=== PATIENT | female | born 1970 | race Caucasian/White ===

== ENCOUNTER 2017-04-28 18:32 | Emergency (ER) | payer OTHER ==
[2017-04-28 18:59] VITALS: BP 150/91; PULSE 100; TEMP 98.2; BMI 25.4
--- NOTE | 2017-04-28 19:00 | PDOC ---
Rapid Medical Evaluation Time Seen by Provider: 04/28/17 18:56 Medical Evaluation: Allergies Allergy/AdvReac Type Severity Reaction Status Date / Time No Known Allergies Allergy Verified 04/28/17 18:56 04/28/17 18:57 The patient presents with a chief complaint of: left knee pain I have performed a brief in-person evaluation of this patient. Pertinent physical exam findings: LROM with flexion, mild generalized edema lt patella I have ordered the following: knee xray The patient will proceed to the ED for further evaluation. Discharge Disposition - Diagnosis Left knee pain Qualifiers: Chronicity: unspecified Qualified Code(s): M25.562 - Pain in left knee - Discharge Dispostion Disposition: HOME Condition at time of disposition: Stable - Referrals Referrals: Paulo Cedillo MD [Staff Physician] - - Patient Instructions Additional Instructions: Follow-up with orthopedist Dr. Cedillo here on 04/30/2017: For appointment tomorrow Wear knee immobilizer during the day take off at night Take ibuprofen as needed as directed by slag skimmer for pain Return to emergency room if symptoms worsen or new symptoms develop And patient voiced understanding of discharge instructions and all questions were answered Kevin un seguimiento con el ortopedista Dr. Cedillo aqu el 30/04/2017: para sarah kaitlin maana Use inmovilizador de rodilla jordan el da para despegar por la noche [place] ibuprofeno segn las indicaciones del fabricante para el dolor Regrese a la mayra de emergencias si los sntomas empeoran o se desarrollan nuevos sntomas Y el paciente expres comprensin de las instrucciones de antoine y todas las preguntas fueron respondidas - Post Discharge Activity Work/School Note: Back to Work
[2017-04-28] MEDS ORDERED: IBUPROFEN 600 MG TABLET (FP) PO ONE ×2 (21:05→21:06)
--- NOTE | 2017-04-28 21:06 | PDOC ---
History of Present Illness - General Chief Complaint: Pain, Acute Stated Complaint: KNEE PAIN Time Seen by Provider: 04/28/17 18:56 Exam Limitations: No Limitations - History of Present Illness Initial Comments: 04/28/17 23:28 My chief complaint: Left knee pain History of present illness: Patient is a 46-year-old female ear today complaining of severe left knee pain today. Patient reports that she has had slight knee pain for approximately one month however today knee pain became severe. Patient reports that she is having difficulty putting any pressure on her left foot due to knee pain and having difficulty bending her left knee due to pain. Patient has not taken anything for pain. Patient denies any injury to knee. Patient denies any chance of . Occurred: reports: other (getting worse for one mth ) Severity: Yes: severe (left knee today ) Lower Extremity Pain Location: left: knee Method of Injury: Yes: unknown Modifying Factors: improves with: None Lower Ext. Injury Location - Specific Injury Location Knees: left pain Extremity Pain Location - Extremity Pain Location Extremity Pain Locations: left: knee Past History - Past Medical History Allergies/Adverse Reactions: Allergies Allergy/AdvReac Type Severity Reaction Status Date / Time No Known Allergies Allergy Verified 04/28/17 18:56 Home Medications: Ambulatory Orders No Home Medications 0 dose .ROUTE UTDICT 07/29/12 Ranitidine HCl [Zantac] 300 mg PO BID #40 tablet 07/29/12 COPD: No Other medical history: DENIES. - Suicide/Smoking/Psychosocial Hx Smoking Status: No Smoking History: Never smoked Number of Cigarettes Smoked Daily: 0 Hx Alcohol Use: No Review of Systems - Review of Systems Able to Perform ROS?: Yes Constitutional: No: Symptoms Reported HEENTM: No: Symptoms Reported Respiratory: No: Symptoms reported Cardiac (ROS): No: Symptoms Reported ABD/GI: No: Symptoms Reported : No: Symptoms Reported Musculoskeletal: Yes: Joint Pain (left knee ). No: Joint Swelling Integumentary: No: Symptoms Reported Neurological: No: Symptoms reported *Physical Exam - Vital Signs Last Vital Signs Temp Pulse Resp BP Pulse Ox 98.2 F 100 H 19 150/91 99 04/28/17 18:56 04/28/17 18:56 04/28/17 18:56 04/28/17 18:56 04/28/17 18:56 - Physical Exam General Appearance: Yes: Appropriately Dressed Neck: negative: Thyromegaly Respiratory/Chest: positive: Lungs Clear, Normal Breath Sounds. negative: Respiratory Distress Cardiovascular: positive: Regular Rhythm, Regular Rate, S1, S2 Vascular Pulses: Doralis-Pedis (L): 4+ Extremity: positive: Normal Capillary Refill, Normal Inspection, Tender ( anterior left knee ), Swelling, Other (negative anterior/posterior drawer). negative: Normal Range of Motion (left knee with flexion) Integumentary: positive: Normal Color Neurologic: positive: Normal Response, Responsive Medical Decision Making - Medical Decision Making 04/28/17 23:29 Patient is a 46-year-old female ear today complaining of severe left knee pain today. Patient reports that she has had slight knee pain for approximately one month however today knee pain became severe. Patient reports that she is having difficulty putting any pressure on her left foot due to knee pain and having difficulty bending her left knee due to pain. Patient has not taken anything for pain. Patient denies any injury to knee. Patient denies any chance of . left knee pain PLAN: xray left knee no pathology noted per Dr. Abraham ibuprofen 600 mg po now follow up with orthopedist knee immoblizer left 04/28/17 23:30 *DC/Admit/Observation/Transfer Diagnosis at time of Disposition: Left knee pain Qualifiers: Chronicity: unspecified Qualified Code(s): M25.562 - Pain in left knee - Discharge Dispostion Disposition: HOME Condition at time of disposition: Stable - Referrals Referrals: Paulo Cedillo MD [Staff Physician] - - Patient Instructions Additional Instructions: Follow-up with orthopedist Dr. Cedillo here on 04/30/2017: For appointment tomorrow Wear knee immobilizer during the day take off at night Take ibuprofen as needed as directed by facility security officer for pain Return to emergency room if symptoms worsen or new symptoms develop And patient voiced understanding of discharge instructions and all questions were answered Kevin un seguimiento con el ortopedista Dr. Cedillo aqu el 30/04/2017: para sarah kaitlin maana Use inmovilizador de rodilla jordan el da para despegar por la noche [place] ibuprofeno segn las indicaciones del fabricante para el dolor Regrese a la mayra de emergencias si los sntomas empeoran o se desarrollan nuevos sntomas Y el paciente expres comprensin de las instrucciones de antoine y todas las preguntas fueron respondidas - Post Discharge Activity Forms/Work/School Notes: Back to Work
== END 2017-04-28 21:22 | disposition home or self-care (01) ==
LOC: JERFT 18:32
DX: M25.562 Pain in left knee (principal)
CPT/HCPCS: 73560-TC-LT; 99281-25